=== PATIENT | female | born 2005 | race Two or more races ===

== ENCOUNTER 2023-03-31 22:32 | Emergency (ER) | payer MEDICAID ==
[~2023-03-31] VITALS: Ht 172.7 cm; Wt 76.4 kg
[2023-03-31 22:52] VITALS: BP 120/62; PULSE 86; RESP 16; TEMP 98.2; O2SAT 100
[2023-03-31 23:14] LABS: Urine Bacteria NONE SEEN /hpf (None Seen); Urine Blood Negative /uL (Negative); Urine Clarity Clear (Clear); Urine Color Yellow (Yellow); Urine Mucus FEW (None Seen); Urine Protein, UAD 1+ (Negative); Urine Specific Gravity 1.047 (1.001-1.035); Urine WBC 1 /hpf (0 - 5); Urine pH 6.5 (5.0-8.0)
[2023-04-01] MEDS ORDERED: AMOX500C2 PO (00:27)
== END 2023-03-31 23:35 | disposition home or self-care (01) ==
LOC: ER 22:32
DX: J02.0 Streptococcal pharyngitis (principal); K60.2 Anal fissure, unspecified; K59.00 Constipation, unspecified
CPT/HCPCS: 81001